=== PATIENT | female | born 1990 | race African-American/Black ===

== ENCOUNTER 2018-07-28 13:40 | Emergency (ER) | payer SELFPAY ==
--- NOTE | 2018-07-28 14:54 | ER Document Report ---
HPI - HPI Time Seen by Provider: 07/28/18 14:48 Pain Level: 3 Context: Patient is a 27-year-old female who presents emergency department with a chief complaint of a sore throat that started this morning. She states that it hurts to swallow, but she is able to swallow. She denies any acute change in her voice. She denies any fever. She has a history of strep throat. She denies any past medical history. - EENT EENT: REPORTS: Sore Throat, Ear Pain - REPRODUCTIVE Reproductive: DENIES: : Past Medical History - General Information source: Patient - Social History Smoking Status: Never Smoker Chew tobacco use (# tins/day): No Frequency of alcohol use: Occasional Drug Abuse: None Family History: Reviewed & Not Pertinent Patient has suicidal ideation: No Patient has homicidal ideation: No Renal/ Medical History: Denies: Hx Peritoneal Dialysis Vertical Provider Document - HEENT HEENT: Atraumatic, Pharyngeal Exudate, Pharyngeal Tenderness, Pharyngeal Erythema. negative: Tympanic Membrane Red, Tympanic Membrane Bulging - NECK Neck: Normal Inspection - RESPIRATORY Respiratory: Breath Sounds Normal, No Respiratory Distress - CARDIOVASCULAR Cardiovascular: Regular Rate, Regular Rhythm - GI/ABDOMEN Gastrointestinal: Abdomen Soft - MUSCULOSKELETAL/EXTREMETIES Musculoskeletal/Extremeties: FROM - NEURO Level of Consciousness: Awake, Alert, Appropriate Motor/Sensory: No Motor Deficit - DERM Integumentary: Warm, Dry, No Rash Course - Re-evaluation Re-evalutation: 07/28/18 14:54 Patient has tonsillar exudate and anterior cervical lymphadenopathy. I do not suspect patient has a peritonsillar abscess, Pedro's angina, or any life- threatening etiology at this time. A strep test has been sent. 07/29/18 15:45 Patient's rapid strep test is negative. She will be started on Flonase and Zyrtec for her symptoms. A strep culture will be sent. Patient is aware that the culture will be sent. Verbal discharge instructions were given to the patient. They verbalized understanding. They are stable for discharge. - Vital Signs Vital signs: Temp Pulse Resp BP Pulse Ox 97.9 F 73 18 103/69 100 07/28/18 13:56 07/28/18 13:56 07/28/18 13:56 07/28/18 13:56 07/28/18 13:56 Discharge - Discharge Clinical Impression: Sore throat Condition: Stable Disposition: HOME, SELF-CARE Additional Instructions: You were seen today in the emergency department for sore throat. Your rapid strep test was negative. The culture was sent for further testing. You have been given Flonase and Zyrtec to help with the inflammation in your nose. Please take these as prescribed. Make sure you drink plenty of fluid. You can drink warm tea with honey to help with your sore throat. If you develop a fever greater than 100.4 F, have difficulty breathing, or have any symptoms that are worrisome to you, please return to the emergency department. Prescriptions: Cetirizine HCl [Zyrtec 10 mg Tablet] 10 mg PO DAILY #30 tablet Fluticasone Propionate [Flonase Nasal [place] 50 Mcg/[place] 16 gm] 2 sprays NASL Q12 #1 inhaler Forms: Return to Work
[2018-07-28] MEDS ORDERED: IBUPROFEN 600 MG TABLET PO ONE (14:56)
[2018-07-28] MEDS ORDERED: ACETAMINOPHEN 325 MG TABLET PO ONE (14:56)
[2018-07-28 15:57] VITALS: BP 112/69
== END 2018-07-28 15:57 | disposition home or self-care (01) ==
LOC: ER 13:40
DX: J02.9 Acute pharyngitis, unspecified (principal)
CPT/HCPCS: 87070; 87880; 99283

== ENCOUNTER 2018-07-31 15:23 | Emergency (ER) | payer SELFPAY ==
--- NOTE | 2018-07-31 16:05 | ER Document Report ---
HPI - HPI Time Seen by Provider: 07/31/18 15:47 Pain Level: 4 Notes: Patient is an otherwise healthy 27-year-old female who presents to the emergency department with fever, chills, productive cough and nasal congestion that started on Thursday. Patient reports she was seen here Thursday and diagnosed with a viral upper respiratory illness. Patient reports her symptoms have not gotten any better and she wanted to be evaluated again. She denies any past medical history and does not take any medications daily. She reports she has tried taking saline nasal washes for her symptoms without relief. - REPRODUCTIVE Reproductive: DENIES: : Past Medical History - General Information source: Patient - Social History Smoking Status: Never Smoker Frequency of alcohol use: None Drug Abuse: None Family History: Reviewed & Not Pertinent - Medical History Medical History: Negative Renal/ Medical History: Denies: Hx Peritoneal Dialysis Surgical Hx: Negative - Immunizations Immunizations up to date: Yes Vertical Provider Document - CONSTITUTIONAL Notes: PHYSICAL EXAMINATION: GENERAL: Well-appearing, well-nourished and in no acute distress. HEAD: Atraumatic, normocephalic. EYES: Pupils equal round extraocular movements intact, conjunctiva are normal. ENT: Nares patent with clear rhinorrhea, no tonsillar swelling or erythema. NECK: Normal range of motion, no cervical lymphadenopathy. LUNGS: No respiratory distress, lung sounds clear to auscultation bilaterally. Musculoskeletal: Normal range of motion NEUROLOGICAL: Normal speech, normal gait. PSYCH: Normal mood, normal affect. SKIN: Warm, Dry, normal turgor, no rashes or lesions noted. - INFECTION CONTROL TRAVEL OUTSIDE OF THE [place] IN LAST 30 DAYS: No Course - Re-evaluation Re-evalutation: 07/31/18 16:05 Will run influenza test as patient has been having fevers as high as 101-102 at home. Patient's physical examination is unremarkable. 07/31/18 16:46 Patient is influenza A positive. - Vital Signs Vital signs: Temp Pulse Resp BP Pulse Ox 97.9 F 116 H 16 112/82 100 07/31/18 15:28 07/31/18 15:28 07/31/18 15:28 07/31/18 15:28 07/31/18 15:28 Discharge - Discharge Clinical Impression: Influenza A Condition: Stable Disposition: HOME, SELF-CARE Additional Instructions: Influenza What are conditions that should receive medical attention? The development of difficulty breathing. Lip color changes to blue or purple. Persistent vomiting and unable to keep liquids down with signs of dehydration such as: dizziness when standing, unable to urinate, or if child/infant is crying no tears are noticed. Is less responsive than normal or becomes confused. How do I decrease the spread of flu in my home? Taking care of the sick patient at home: Keep the sick person in a room separate from the common areas of the house. Keep the "sickroom" door closed. If the person with the flu needs to leave the home, they should cover their nose/mouth when coughing or sneezing and wear a disposable (surgical) mask if available. These masks may be available at your local pharmacy, medical supply and hardware store. If the sick person is in common areas of the house, have them wear a surgical mask. If possible, have the sick person use a separate bathroom that should be cleaned daily with a household disinfectant. If you are the caregiver: Avoid being face to face with the sick adult person as much as possible. Try to stay at least 6 feet away and wear a disposable surgical mask when possible. When holding small children who are sick, place their chin on your shoulder so that they will not cough in your face. Wash your hands after you touch the sick person or handle their tissues and laundry. Wear a mask if you leave home, as you may be infected from taking care of someone and not know it yet. Watch yourself and others in the home for flu symptoms and contact your doctor if symptoms occur. NOTE: Antiviral medication used to reduce the symptoms of the flu works only if taken within 48 hours, and best within 24 hours of symptom onset. Household Cleaning, laundry and waste disposal: Tissues and other disposable items used by the sick person should be thrown away in the trash. Wash your hands after touching these used items. No special waste disposal is required. Keep surfaces (especially bedside tables, bathroom surfaces, and toys for children) clean by wiping them down with a safe household disinfectant according to the directions on the product label. Per CDC advice, most people will not receive testing to confirm flu. Also based on the person's health history and onset of symptoms, not all patients will receive prescriptions for antiviral medications. If you have questions related to this, please ask your healthcare provider. For more information, you can call the Centers for Disease Control and Prevention (CDC) Hotline at 7-378-JAZ-INFO This line is available in Azeri and Pashto, 24 hours a day, 7 days a week. Or www.[place] or www.cdc.gov Flu-Like Illness Home Instructions: The influenza virus infection can cause a wide rage of symptoms, including: Fever, cough, sore throat, body aches, headaches, chills, fatigue, with some patients reporting diarrhea and vomiting Like seasonal influenza A, H1N1 ("swine flu")in humans can vary in severity from mild to severe Severe illness with pneumonia, respiratory failure and even is possible Certain groups might be more likely to develop a severe illness from H1N1 infection. Sometimes bacterial infections may occur at the same time as or after infection with influenza viruses and lead to pneumonias, ear infections, or sinus infections. How Flu Spreads The main way that influenza viruses spread is through respiratory droplets of coughs and sneezes. This can happen when someone with the infection coughs or sneezes and the particles fly through the air and land on other people and surfaces. If the person covers their mouth and nose with their hand but does not wash their hands immediately, then these germs are passed onto the next object that they touch. People with Influenza A or suspected H1N1 (swine flu) who are cared for at home should: Check with their doctor about any special care that they might need if they are or have a health condition such as diabetes, heart disease, asthma or emphysema. Also, limit caregiver to one (if possible). women or those with chronic health conditions should not take care of the flu patient unless necessary. Check with their doctor about whether or not medications are needed that may lessen the symptoms of the flu. Stay at home until 24 hours fever free without the use of fever reducing medication. Get plenty of rest and avoid other healthy people in your home. Drink plenty of clear liquids to keep from getting dehydrated. Take medications like Tylenol (Acetaminophen), Advil/Motrin/Nuprin (Ibuprofen) or Aleve (Naproxen) for fevers and aches. All children under the age of 18 years of age should not take aspirin or products containing aspirin (e.g. Pepto Bismol), as this can cause a rare serious illness called [place] Syndrome. Over the counter medications for flu and colds may help, but it is very important to follow the package directions. Remember that the medicine may help the symptoms, but it will not help prevent others from getting sick if they are around you. Cover coughs and sneezes using your bent arm. Clean hands with soap and water or an alcohol-based hand rub often, especially after using tissues to cough or sneeze. Encourage hand washing frequently for all people living in the home! The sick person should not have visitors other than caregivers. Encourage concerned loved ones to call instead of visit. Avoid close contact with others-do not go to work or school while sick. Forms: Return to Work
[2018-07-31 16:36] LABS: A TYPE INFLUENZA AG POSITIVE (NEGATIVE); B INFLUENZA AG NEGATIVE (NEGATIVE)
[2018-07-31 16:53] VITALS: BP 103/73
== END 2018-07-31 17:04 | disposition home or self-care (01) ==
LOC: ER 15:23
DX: J10.1 Influenza due to other identified influenza virus with other respiratory manifestations (principal); R50.9 Fever, unspecified; R05 Cough; R09.81 Nasal congestion
CPT/HCPCS: 87804; 99283